=== PATIENT | female | born 1950 | race Caucasian/White ===

== ENCOUNTER 2017-07-29 11:55 | Inpatient (IN) | payer MEDICARE ==
[~2017-07-29] VITALS: Ht 149.9 cm; Wt 58.5 kg
[2017-07-29 12:00] VITALS: BP 142/59
[2017-07-29] MEDS ORDERED: ALBUTEROL SULFATE HFA 90 MCG/PUFF 8 GM INHALER IH PRN (14:15)
[2017-07-29] MEDS ORDERED: TEMAZEPAM 7.5 MG CAPSULE PO PRN (14:30)
[2017-07-29] MEDS ORDERED: DEXTROSE 50%-WATER 25 GM/50 ML SYRINGE IVP PRN (14:30)
[2017-07-29 15:30] VITALS: BP 149/59
[2017-07-29] MEDS: TraMADol HCL 50 MG TABLET PO PRN ×2 (16:40→22:30)
[2017-07-29] MEDS ORDERED: SEVELAMER CARBONATE 800 MG TABLET PO SCH (17:00)
[2017-07-29] MEDS: APIXABAN 2.5 MG TABLET PO SCH (20:06)
[2017-07-29] MEDS ORDERED: HEPARIN SODIUM,PORCINE 5,000 UNITS/ML VIAL SQ SCH (21:00)
[2017-07-29 21:23] LABS: GLUCOSE,POINT OF CARE 123 MG/DL (70-110)
[2017-07-29 21:23] LABS: GLUCOSE,POINT OF CARE 151 MG/DL (70-110)
[2017-07-29] MEDS: INSULIN ASPART 100 UNITS/ML SQ PRN (21:30)
[2017-07-30 04:20] VITALS: BP 123/56
[2017-07-30] MEDS: TraMADol HCL 50 MG TABLET PO PRN ×2 (04:21→18:59)
[2017-07-30 06:18] LABS: GLUCOSE,POINT OF CARE 104 MG/DL (70-110)
[2017-07-30 06:54] LABS: BASOPHILS % (AUTO) 0.3 % (0.0-2.0); EOSINOPHILS % (AUTO) 5.9 % (1.0-6.0); HEMATOCRIT 33.3 % (36-46); HEMOGLOBIN 10.7 g/dL (12.0-16.0); LYMPHOCYTES # (AUTO) 1.3 K/uL (1.0-4.8); LYMPHOCYTES % (AUTO) 21.9 % (22.0-44.0); MEAN CORPUSCULAR HEMOGLOBIN 30.6 pg (26.0-34.0); MEAN CORPUSCULAR VOLUME 95 fL (80-100); MONOCYTES # (AUTO) 0.9 K/uL (0.1-1.0); NEUTROPHILS # (AUTO) 3.5 K/uL (1.8-7.7); NEUTROPHILS % (AUTO) 56.9 % (40.0-70.0); PLATELET COUNT (AUTO) 239 K/uL (150-450); RED BLOOD CELL COUNT(AUTO) 3.49 MIL/uL (4.00-5.20); WHITE BLOOD COUNT (AUTO) 6.1 K/uL (4.5-11.0)
[2017-07-30 07:09] LABS: ALBUMIN 2.2 g/dL (3.4-5.0); BILIRUBIN,TOTAL 0.4 mg/dL (0.1-1.0); CREATININE 4.15 mg/dL (0.60-1.30); POTASSIUM 3.7 mmol/L (3.5-5.1); TOTAL PROTEIN, SERUM 6.7 g/dL (6.4-8.2)
[2017-07-30 07:57] VITALS: BP 153/67
[2017-07-30] MEDS: FLUTICASONE PROPIONATE 50 MCG/SPRAY 16 GM NASAL SPRAY NASAL SCH (08:33)
[2017-07-30] MEDS: FAMOTIDINE 20 MG TABLET PO SCH (08:34)
[2017-07-30] MEDS: VITAMIN B COMP/VIT C/FOLIC ACID CAPSULE PO SCH (08:34)
[2017-07-30] MEDS: APIXABAN 2.5 MG TABLET PO SCH ×2 (08:34→20:33)
[2017-07-30] MEDS: ATORVASTATIN CALCIUM 20 MG TABLET PO SCH (08:34)
[2017-07-30] MEDS: LEVOFLOXACIN 500 MG TABLET PO SCH (08:34)
[2017-07-30] MEDS: SEVELAMER CARBONATE 800 MG TABLET PO SCH ×3 (08:34→18:57)
[2017-07-30] MEDS: GABAPENTIN 300 MG CAPSULE PO SCH (08:34)
[2017-07-30] MEDS: ACETAMINOPHEN 325 MG TABLET PO PRN (10:11)
[2017-07-30] MEDS ORDERED: ACETAMINOPHEN 325 MG TABLET PO ONE (12:00)
[2017-07-30 12:15] LABS: RBC MORPHOLOGY COMMENT ABNORMAL RBC MORPH
[2017-07-30] MEDS ORDERED: SODIUM CHLORIDE 0.9% 2,000 ML IV ONE (13:53)
[2017-07-30 18:55] VITALS: BP 108/46
[2017-07-30 19:34] LABS: GLUCOSE,POINT OF CARE 115 MG/DL (70-110)
[2017-07-30] MEDS: TEMAZEPAM 15 MG CAPSULE PO PRN (20:34)
[2017-07-30] MEDS: INSULIN ASPART 100 UNITS/ML SQ PRN (21:45)
[2017-07-31 01:05] VITALS: BP 146/62
[2017-07-31] MEDS: TraMADol HCL 50 MG TABLET PO PRN ×4 (01:05→22:59)
[2017-07-31 05:50] LABS: GLUCOSE,POINT OF CARE 135 MG/DL (70-110)
[2017-07-31 07:18] VITALS: BP 126/55
[2017-07-31] MEDS: SEVELAMER CARBONATE 800 MG TABLET PO SCH ×3 (08:28→17:50)
[2017-07-31] MEDS: FLUTICASONE PROPIONATE 50 MCG/SPRAY 16 GM NASAL SPRAY NASAL SCH (08:28)
[2017-07-31] MEDS: APIXABAN 2.5 MG TABLET PO SCH ×2 (08:29→20:29)
[2017-07-31] MEDS: GABAPENTIN 300 MG CAPSULE PO SCH (08:29)
[2017-07-31] MEDS: FAMOTIDINE 20 MG TABLET PO SCH (08:29)
[2017-07-31] MEDS: EPOETIN ALFA 10,000 UNITS/ML VIAL SQ SCH (08:29)
[2017-07-31] MEDS: ATORVASTATIN CALCIUM 20 MG TABLET PO SCH (08:29)
[2017-07-31] MEDS: VITAMIN B COMP/VIT C/FOLIC ACID CAPSULE PO SCH (08:29)
[2017-07-31 12:57] LABS: GLUCOSE,POINT OF CARE 177 MG/DL (70-110)
[2017-07-31] MEDS: INSULIN ASPART 100 UNITS/ML SQ PRN ×2 (13:00→18:44)
[2017-07-31 15:56] VITALS: BP 109/60
[2017-07-31 17:12] LABS: GLUCOSE,POINT OF CARE 122 MG/DL (70-110)
[2017-07-31 17:12] LABS: GLUCOSE,POINT OF CARE 173 MG/DL (70-110)
[2017-07-31 17:33] LABS: GLUCOSE COMMENT 1 Received Meds; GLUCOSE,POINT OF CARE 158 MG/DL (70-110)
[2017-07-31 20:28] LABS: GLUCOSE,POINT OF CARE 120 MG/DL (70-110)
[2017-07-31] MEDS: DOCUSATE SODIUM 100 MG CAPSULE PO SCH (20:29)
[2017-07-31] MEDS ORDERED: SENNA 187 MG TABLET PO SCH (21:00)
[2017-07-31] MEDS: TEMAZEPAM 15 MG CAPSULE PO PRN (22:59)
[2017-07-31 23:58] VITALS: BP 116/50
[2017-08-01] MEDS: LACTULOSE 20 GM/30 ML SOLUTION UDCUP PO PRN (06:05)
[2017-08-01 06:13] LABS: GLUCOSE,POINT OF CARE 128 MG/DL (70-110)
[2017-08-01 07:34] LABS: PROTHROMBIN TIME 10.9 SEC (9.4-11.6)
[2017-08-01 07:40] VITALS: BP 126/53
[2017-08-01 07:42] LABS: CALCIUM, TOTAL 9.1 mg/dL (8.8-10.5); CREATININE 4.29 mg/dL (0.60-1.30); HEMOGLOBIN A1C 8.1 % (4.5-6.2); MAGNESIUM 2.2 mg/dL (1.80-2.40); PHOSPHORUS 2.2 mg/dL (2.5-4.9); POTASSIUM 4.3 mmol/L (3.5-5.1)
[2017-08-01] MEDS: FLUTICASONE PROPIONATE 50 MCG/SPRAY 16 GM NASAL SPRAY NASAL SCH (08:01)
[2017-08-01] MEDS: DOCUSATE SODIUM 100 MG CAPSULE PO SCH (08:01)
[2017-08-01] MEDS: VITAMIN B COMP/VIT C/FOLIC ACID CAPSULE PO SCH (08:01)
[2017-08-01] MEDS: TraMADol HCL 50 MG TABLET PO PRN ×2 (08:01→18:44)
[2017-08-01] MEDS: FAMOTIDINE 20 MG TABLET PO SCH (08:01)
[2017-08-01] MEDS: GABAPENTIN 300 MG CAPSULE PO SCH (08:01)
[2017-08-01] MEDS: ATORVASTATIN CALCIUM 20 MG TABLET PO SCH (08:01)
[2017-08-01] MEDS: SEVELAMER CARBONATE 800 MG TABLET PO SCH ×3 (08:01→18:45)
[2017-08-01] MEDS: LEVOFLOXACIN 500 MG TABLET PO SCH (08:01)
[2017-08-01] MEDS: APIXABAN 2.5 MG TABLET PO SCH ×2 (08:01→20:37)
[2017-08-01 08:22] LABS: BASOPHILS % (AUTO) 0.2 % (0.0-2.0); EOSINOPHILS % (AUTO) 4.3 % (1.0-6.0); HEMATOCRIT 34.3 % (36-46); HEMOGLOBIN 11.1 g/dL (12.0-16.0); LYMPHOCYTES # (AUTO) 1.7 K/uL (1.0-4.8); LYMPHOCYTES % (AUTO) 21.6 % (22.0-44.0); MEAN CORPUSCULAR HEMOGLOBIN 31.1 pg (26.0-34.0); MEAN CORPUSCULAR HGB CONC 32.3 G/dL (31.0-37.0); MEAN CORPUSCULAR VOLUME 96 fL (80-100); MONOCYTES # (AUTO) 1.2 K/uL (0.1-1.0); MONOCYTES % (AUTO) 15.5 % (2.0-9.0); NEUTROPHILS # (AUTO) 4.5 K/uL (1.8-7.7); NEUTROPHILS % (AUTO) 58.4 % (40.0-70.0); PLATELET COUNT (AUTO) 215 K/uL (150-450); RED BLOOD CELL COUNT(AUTO) 3.56 MIL/uL (4.00-5.20); RED CELL DISTRIBUTION WIDTH 20.1 % (11.5-14.5); WHITE BLOOD COUNT (AUTO) 7.8 K/uL (4.5-11.0)
[2017-08-01] MEDS ORDERED: SODIUM CL IRRIG SOLN BOTTLE 250 ML IRRIG ONE (10:55)
[2017-08-01 11:04] LABS: APPEARANCE,URINE TURBID (CLEAR); GLUCOSE, URINE (UA) NEGATIVE (NEGATIVE); KETONES,URINE TRACE mg/dL (NEGATIVE); LEUKOCYTE ESTERASE ,URINE MODERATE (NEGATIVE); OCCULT BLOOD,URINE LARGE (NEGATIVE); PROTEIN,URINE SEE CONFIRM (NEGATIVE)
[2017-08-01 11:49] LABS: SULFOSALICYLIC ACID,URINE 3+ (Negative); WBC,URINE Full Field /HPF (0-5)
[2017-08-01 11:57] LABS: RBC,URINE 26-50 /HPF (0-2)
[2017-08-01 11:58] LABS: SQUAMOUS EPITHELIAL CELL,UR Moderate /LPF (None Seen)
[2017-08-01] MEDS ORDERED: DiphenhydrAMINE HCL 25 MG CAPSULE PO PRN (13:45)
[2017-08-01] MEDS ORDERED: SODIUM CHLORIDE 0.9% 2,000 ML IV ONE (14:11)
[2017-08-01 18:48] VITALS: BP 116/51
[2017-08-01 19:17] LABS: GLUCOSE,POINT OF CARE 123 MG/DL (70-110)
[2017-08-01] MEDS ORDERED: DOCU100C19 PO (20:10)
[2017-08-01] MEDS ORDERED: PERCT10 PO (20:10)
[2017-08-01] MEDS ORDERED: LORA1TAB3 PO (20:10)
[2017-08-01] MEDS ORDERED: ASPI81 PO (20:10)
[2017-08-01] MEDS ORDERED: FOLI1TAB85 PO (20:10)
[2017-08-01] MEDS ORDERED: FAMO20 PO (20:10)
[2017-08-01] MEDS ORDERED: PRED5 PO (20:10)
[2017-08-01] MEDS ORDERED: SEVEC800 PO (20:10)
[2017-08-01] MEDS ORDERED: SIRO1 PO (20:10)
[2017-08-01] MEDS ORDERED: METO50 PO (20:10)
[2017-08-01] MEDS ORDERED: LISI-661 PO (20:10)
[2017-08-01] MEDS: DOCUSATE SODIUM 250 MG CAPSULE PO SCH (20:37)
[2017-08-01] MEDS: SENNA 187 MG TABLET PO SCH (20:38)
[2017-08-01] MEDS: INSULIN ASPART 100 UNITS/ML SQ PRN (20:48)
[2017-08-01] MEDS ORDERED: -LIDODERM PATCH NOTE- MISC SCH ×2 (21:00)
[2017-08-01 21:02] LABS: GLUCOSE,POINT OF CARE 198 MG/DL (70-110)
[2017-08-01] MEDS: HYDROCODONE/ACETAMINOPHEN 10-325 MG TABLET PO PRN (21:55)
[2017-08-01 23:29] VITALS: BP 119/56
[2017-08-02] MEDS: TraMADol HCL 50 MG TABLET PO PRN (02:03)
[2017-08-02 05:52] LABS: GLUCOSE,POINT OF CARE 172 MG/DL (70-110)
[2017-08-02] MEDS ORDERED: DOCUSATE SODIUM 283 MG/5 ML MINI-ENEMA PR SCH (06:00)
[2017-08-02] MEDS: LACTULOSE 20 GM/30 ML SOLUTION UDCUP PO PRN (06:51)
[2017-08-02 07:10] VITALS: BP 114/49
[2017-08-02] MEDS ORDERED: LIDOCAINE HCL 5% TRANSDERMAL PATCH TD SCH (09:00)
[2017-08-02] MEDS: SEVELAMER CARBONATE 800 MG TABLET PO SCH (09:31)
[2017-08-02] MEDS: FLUTICASONE PROPIONATE 50 MCG/SPRAY 16 GM NASAL SPRAY NASAL SCH (09:32)
[2017-08-02] MEDS: FAMOTIDINE 20 MG TABLET PO SCH (09:32)
[2017-08-02] MEDS: ATORVASTATIN CALCIUM 20 MG TABLET PO SCH (09:32)
[2017-08-02] MEDS: INSULIN ASPART 100 UNITS/ML SQ PRN ×3 (09:32→21:48)
[2017-08-02] MEDS: DOCUSATE SODIUM 250 MG CAPSULE PO SCH ×2 (09:32→21:50)
[2017-08-02] MEDS: GABAPENTIN 300 MG CAPSULE PO SCH (09:32)
[2017-08-02] MEDS: VITAMIN B COMP/VIT C/FOLIC ACID CAPSULE PO SCH (09:32)
[2017-08-02] MEDS: APIXABAN 2.5 MG TABLET PO SCH ×2 (09:33→21:50)
[2017-08-02 12:18] LABS: GLUCOSE,POINT OF CARE 182 MG/DL (70-110)
[2017-08-02 15:17] VITALS: BP 134/61
[2017-08-02 17:23] LABS: GLUCOSE,POINT OF CARE 228 MG/DL (70-110)
[2017-08-02 18:14] VITALS: BP 125/58
[2017-08-02] MEDS: ACETAMINOPHEN 325 MG TABLET PO PRN (18:41)
[2017-08-02 19:49] LABS: BASOPHILS % (AUTO) 0.4 % (0.0-2.0); EOSINOPHILS % (AUTO) 2.6 % (1.0-6.0); HEMATOCRIT 36.5 % (36-46); HEMOGLOBIN 11.8 g/dL (12.0-16.0); LYMPHOCYTES # (AUTO) 1.7 K/uL (1.0-4.8); LYMPHOCYTES % (AUTO) 15.6 % (22.0-44.0); MEAN CORPUSCULAR HEMOGLOBIN 30.7 pg (26.0-34.0); MEAN CORPUSCULAR HGB CONC 32.2 G/dL (31.0-37.0); MEAN CORPUSCULAR VOLUME 95 fL (80-100); MONOCYTES # (AUTO) 0.9 K/uL (0.1-1.0); MONOCYTES % (AUTO) 8.3 % (2.0-9.0); NEUTROPHILS # (AUTO) 7.9 K/uL (1.8-7.7); NEUTROPHILS % (AUTO) 73.1 % (40.0-70.0); PLATELET COUNT (AUTO) 223 K/uL (150-450); RED BLOOD CELL COUNT(AUTO) 3.83 MIL/uL (4.00-5.20); RED CELL DISTRIBUTION WIDTH 21.5 % (11.5-14.5); WHITE BLOOD COUNT (AUTO) 10.9 K/uL (4.5-11.0)
[2017-08-02 20:06] LABS: CALCIUM, TOTAL 9.2 mg/dL (8.8-10.5); CREATININE 4.31 mg/dL (0.60-1.30); POTASSIUM 4.4 mmol/L (3.5-5.1)
[2017-08-02 20:12] LABS: ALBUMIN 2.6 g/dL (3.4-5.0); BILIRUBIN,TOTAL 0.5 mg/dL (0.1-1.0); RBC MORPHOLOGY COMMENT ABNORMAL RBC MORPH; TOTAL PROTEIN, SERUM 7.9 g/dL (6.4-8.2)
[2017-08-02] MEDS: HYDROCODONE/ACETAMINOPHEN 10-325 MG TABLET PO PRN (20:16)
[2017-08-02] MEDS ORDERED: CefoTEtan DISOD 1 GM/DEXTROSE 50 ML IV SCH (21:00)
[2017-08-02] MEDS ORDERED: VANCOMYCIN HCL 1 GM/D5% WATER 200 ML IV PRN (21:00)
[2017-08-02] MEDS ORDERED: CefoTEtan DISODIUM 0.5 GM in DEXTROSE 5%-WATER 50 ML IV PRN (21:15)
[2017-08-02] MEDS ORDERED: VANCOMYCIN HCL 1.25 GM in DEXTROSE 5%-WATER 250 ML IV ONE (21:30)
[2017-08-02] MEDS: SENNA 187 MG TABLET PO SCH (21:50)
[2017-08-02 21:57] LABS: GLUCOSE,POINT OF CARE 263 MG/DL (70-110)
[2017-08-02] MEDS ORDERED: CefoTEtan DISODIUM 0.5 GM in DEXTROSE 5%-WATER 50 ML IV SCH (22:00)
[2017-08-02 23:38] VITALS: BP 116/43
[2017-08-03] MEDS ORDERED: SODIUM CHLORIDE 0.9% 250 ML IV ONE (00:18)
[2017-08-03] MEDS: 0.9% SODIUM CHLORIDE 10 ML SYRINGE IVP SCH ×4 (00:37→23:51)
[2017-08-03 05:15] VITALS: BP 114/48
[2017-08-03 05:48] LABS: GLUCOSE,POINT OF CARE 209 MG/DL (70-110)
[2017-08-03 07:20] VITALS: BP 110/52
[2017-08-03] MEDS: FLUTICASONE PROPIONATE 50 MCG/SPRAY 16 GM NASAL SPRAY NASAL SCH (08:21)
[2017-08-03] MEDS: FAMOTIDINE 20 MG TABLET PO SCH (08:22)
[2017-08-03] MEDS: GABAPENTIN 300 MG CAPSULE PO SCH (08:22)
[2017-08-03] MEDS: ATORVASTATIN CALCIUM 20 MG TABLET PO SCH (08:22)
[2017-08-03] MEDS: APIXABAN 2.5 MG TABLET PO SCH ×2 (08:22→21:58)
[2017-08-03] MEDS: VITAMIN B COMP/VIT C/FOLIC ACID CAPSULE PO SCH (08:22)
[2017-08-03] MEDS: EPOETIN ALFA 10,000 UNITS/ML VIAL SQ SCH (08:22)
[2017-08-03] MEDS: DOCUSATE SODIUM 250 MG CAPSULE PO SCH ×2 (08:22→21:58)
[2017-08-03] MEDS: INSULIN ASPART 100 UNITS/ML SQ PRN ×4 (08:33→22:17)
[2017-08-03] MEDS ORDERED: -POST HEMODIALYSIS NOTE- MISC SCH (09:00)
[2017-08-03 15:23] VITALS: BP 108/43
[2017-08-03 17:12] LABS: GLUCOSE,POINT OF CARE 231 MG/DL (70-110)
[2017-08-03] MEDS ORDERED: SULFAMETHOX/TRIMETH DS 800-160 MG/TABLET PO ONE (19:45)
[2017-08-03] MEDS: TraMADol HCL 50 MG TABLET PO PRN (19:59)
[2017-08-03] MEDS: SENNA 187 MG TABLET PO SCH (21:58)
[2017-08-03 23:27] LABS: GLUCOSE COMMENT 1 Juice/Food/D50 Given; GLUCOSE,POINT OF CARE 195 MG/DL (70-110)
[2017-08-04] VITALS: BP 112/53
[2017-08-04] MEDS: 0.9% SODIUM CHLORIDE 10 ML SYRINGE IVP SCH
[2017-08-04] MEDS: TraMADol HCL 50 MG TABLET PO PRN ×3 (02:38→20:22)
[2017-08-04 06:07] LABS: GLUCOSE,POINT OF CARE 210 MG/DL (70-110)
[2017-08-04] MEDS: VITAMIN B COMP/VIT C/FOLIC ACID CAPSULE PO SCH (08:33)
[2017-08-04] MEDS: APIXABAN 2.5 MG TABLET PO SCH ×2 (08:33→20:21)
[2017-08-04] MEDS: DOCUSATE SODIUM 250 MG CAPSULE PO SCH ×2 (08:33→20:21)
[2017-08-04] MEDS: GABAPENTIN 300 MG CAPSULE PO SCH (08:33)
[2017-08-04] MEDS: ATORVASTATIN CALCIUM 20 MG TABLET PO SCH (08:34)
[2017-08-04] MEDS: SULFAMETHOX/TRIMETH DS 800-160 MG/TABLET PO SCH (08:34)
[2017-08-04] MEDS: FLUTICASONE PROPIONATE 50 MCG/SPRAY 16 GM NASAL SPRAY NASAL SCH (08:34)
[2017-08-04] MEDS: FAMOTIDINE 20 MG TABLET PO SCH (08:35)
[2017-08-04 08:38] VITALS: BP 100/44
[2017-08-04] MEDS: HYDROCODONE/ACETAMINOPHEN 10-325 MG TABLET PO PRN (09:37)
[2017-08-04] MEDS: INSULIN ASPART 100 UNITS/ML SQ PRN ×3 (10:14→21:16)
[2017-08-04 11:23] VITALS: BP 120/49
[2017-08-04] MEDS ORDERED: SODIUM CHLORIDE 0.9% 1,000 ML IV ONE ×2 (13:18)
[2017-08-04 13:32] LABS: GLUCOSE,POINT OF CARE 185 MG/DL (70-110)
[2017-08-04 15:45] VITALS: BP 120/59
[2017-08-04] MEDS ORDERED: MANNITOL 25%-12.5 GM/50 ML VIAL IVP PRN (15:45)
[2017-08-04 17:58] LABS: GLUCOSE,POINT OF CARE 186 MG/DL (70-110)
[2017-08-04 18:17] LABS: GLUCOSE,POINT OF CARE 93 MG/DL (70-110)
[2017-08-04] MEDS: SENNA 187 MG TABLET PO SCH (20:44)
[2017-08-04 22:27] LABS: GLUCOSE,POINT OF CARE 256 MG/DL (70-110)
[2017-08-04 23:24] VITALS: BP 131/54
[2017-08-04] MEDS: ONDANSETRON HCL 4 MG TABLET PO PRN (23:26)
[2017-08-05 06:13] LABS: GLUCOSE,POINT OF CARE 181 MG/DL (70-110)
[2017-08-05 07:22] VITALS: BP 109/56
[2017-08-05] MEDS: ATORVASTATIN CALCIUM 20 MG TABLET PO SCH (08:04)
[2017-08-05] MEDS: APIXABAN 2.5 MG TABLET PO SCH ×2 (08:04→21:03)
[2017-08-05] MEDS: DOCUSATE SODIUM 250 MG CAPSULE PO SCH ×2 (08:04→21:03)
[2017-08-05] MEDS: VITAMIN B COMP/VIT C/FOLIC ACID CAPSULE PO SCH (08:04)
[2017-08-05] MEDS: EPOETIN ALFA 10,000 UNITS/ML VIAL SQ SCH (08:05)
[2017-08-05] MEDS: FAMOTIDINE 20 MG TABLET PO SCH (08:05)
[2017-08-05] MEDS: GABAPENTIN 300 MG CAPSULE PO SCH (08:05)
[2017-08-05] MEDS: FLUTICASONE PROPIONATE 50 MCG/SPRAY 16 GM NASAL SPRAY NASAL SCH (08:05)
[2017-08-05] MEDS: SULFAMETHOX/TRIMETH DS 800-160 MG/TABLET PO SCH (08:05)
[2017-08-05] MEDS: INSULIN ASPART 100 UNITS/ML SQ PRN ×4 (08:08→21:10)
[2017-08-05 08:19] VITALS: BP 109/56
[2017-08-05] MEDS: TraMADol HCL 50 MG TABLET PO PRN ×2 (08:54→18:29)
[2017-08-05 13:28] LABS: GLUCOSE COMMENT 1 Received Meds; GLUCOSE,POINT OF CARE 169 MG/DL (70-110)
[2017-08-05 15:37] VITALS: BP 109/52
[2017-08-05] MEDS ORDERED: HUM10VIA SQ ×2 (16:39)
[2017-08-05 17:52] LABS: GLUCOSE,POINT OF CARE 200 MG/DL (70-110)
[2017-08-05] MEDS: SENNA 187 MG TABLET PO SCH (21:03)
[2017-08-05 23:42] LABS: GLUCOSE,POINT OF CARE 185 MG/DL (70-110)
[2017-08-06 04:00] VITALS: BP 126/52
[2017-08-06 06:28] LABS: GLUCOSE,POINT OF CARE 155 MG/DL (70-110)
[2017-08-06 07:20] VITALS: BP 129/48
[2017-08-06] MEDS: DOCUSATE SODIUM 250 MG CAPSULE PO SCH ×2 (09:18→20:32)
[2017-08-06] MEDS: ATORVASTATIN CALCIUM 20 MG TABLET PO SCH (09:18)
[2017-08-06] MEDS: VITAMIN B COMP/VIT C/FOLIC ACID CAPSULE PO SCH (09:18)
[2017-08-06] MEDS: SULFAMETHOX/TRIMETH DS 800-160 MG/TABLET PO SCH (09:19)
[2017-08-06] MEDS: GABAPENTIN 300 MG CAPSULE PO SCH (09:19)
[2017-08-06] MEDS: FAMOTIDINE 20 MG TABLET PO SCH (09:19)
[2017-08-06] MEDS: APIXABAN 2.5 MG TABLET PO SCH ×2 (09:19→20:32)
[2017-08-06] MEDS: FLUTICASONE PROPIONATE 50 MCG/SPRAY 16 GM NASAL SPRAY NASAL SCH (09:19)
[2017-08-06] MEDS: [UNRECOGNIZED DRUG - REMARK] MISC SCH (10:30)
[2017-08-06] MEDS ORDERED: SODIUM CHLORIDE 0.9% 1,000 ML IV ONE ×2 (12:00)
[2017-08-06 12:27] LABS: GLUCOSE,POINT OF CARE 210 MG/DL (70-110)
[2017-08-06] MEDS: INSULIN ASPART 100 UNITS/ML SQ PRN ×2 (12:49→21:14)
[2017-08-06] MEDS ORDERED: VANCOMYCIN HCL 1 GM/D5% WATER 200 ML IV PRN ×2 (15:00)
[2017-08-06] MEDS ORDERED: DiphenhydrAMINE HCL 50 MG/ML VIAL IVP PRN (15:15)
[2017-08-06] MEDS ORDERED: MANNITOL 25%-12.5 GM/50 ML VIAL IVP PRN (15:15)
[2017-08-06] MEDS ORDERED: ALBUMIN HUMAN 25%-12.5GM/50ML IV BOTTLE IV PRN (15:15)
[2017-08-06] MEDS ORDERED: LIDOCAINE HCL/PF 1% 2 ML VIAL ID PRN (15:15)
[2017-08-06] MEDS ORDERED: SODIUM CHLORIDE 0.9% 500 ML IV ONE (15:21)
[2017-08-06] MEDS: VANCOMYCIN HCL 750 MG in DEXTROSE 5%-WATER 150 ML IV PRN (15:52)
[2017-08-06 18:03] VITALS: BP 103/47
[2017-08-06] MEDS: ONDANSETRON HCL 4 MG TABLET PO PRN (18:11)
[2017-08-06] MEDS: SENNA 187 MG TABLET PO SCH (20:32)
[2017-08-06] MEDS: ACETAMINOPHEN 325 MG TABLET PO PRN (21:28)
[2017-08-06 22:32] LABS: GLUCOSE,POINT OF CARE 138 MG/DL (70-110)
[2017-08-06 22:32] LABS: GLUCOSE COMMENT 1 Received Meds; GLUCOSE,POINT OF CARE 262 MG/DL (70-110)
[2017-08-07 01:00] VITALS: BP 103/46
[2017-08-07 06:28] LABS: GLUCOSE,POINT OF CARE 123 MG/DL (70-110)
[2017-08-07 08:30] VITALS: BP 103/54
[2017-08-07] MEDS: SULFAMETHOX/TRIMETH DS 800-160 MG/TABLET PO SCH (08:52)
[2017-08-07] MEDS: FLUTICASONE PROPIONATE 50 MCG/SPRAY 16 GM NASAL SPRAY NASAL SCH (08:52)
[2017-08-07] MEDS: DOCUSATE SODIUM 250 MG CAPSULE PO SCH ×2 (08:52→20:53)
[2017-08-07] MEDS: ATORVASTATIN CALCIUM 20 MG TABLET PO SCH (08:52)
[2017-08-07] MEDS: VITAMIN B COMP/VIT C/FOLIC ACID CAPSULE PO SCH (08:52)
[2017-08-07] MEDS: GABAPENTIN 300 MG CAPSULE PO SCH (08:52)
[2017-08-07] MEDS: FAMOTIDINE 20 MG TABLET PO SCH (08:52)
[2017-08-07] MEDS: APIXABAN 2.5 MG TABLET PO SCH ×2 (08:53→20:52)
[2017-08-07] MEDS: EPOETIN ALFA 10,000 UNITS/ML VIAL SQ SCH (08:53)
[2017-08-07] MEDS: TraMADol HCL 50 MG TABLET PO PRN ×2 (10:47→18:55)
[2017-08-07] MEDS: INSULIN ASPART 100 UNITS/ML SQ PRN ×3 (12:41→22:08)
[2017-08-07] MEDS: ACETAMINOPHEN 325 MG TABLET PO PRN (14:14)
[2017-08-07 15:25] VITALS: BP 117/50
[2017-08-07 17:37] LABS: GLUCOSE COMMENT 1 Received Meds; GLUCOSE,POINT OF CARE 247 MG/DL (70-110)
[2017-08-07] MEDS: SENNA 187 MG TABLET PO SCH (20:53)
[2017-08-07 21:47] LABS: GLUCOSE COMMENT 1 Repeated; GLUCOSE COMMENT 2 Received Meds; GLUCOSE,POINT OF CARE 195 MG/DL (70-110)
[2017-08-07 21:52] LABS: GLUCOSE,POINT OF CARE 216 MG/DL (70-110)
[2017-08-08 02:28] VITALS: BP 133/54
[2017-08-08 07:30] VITALS: BP 112/46
[2017-08-08] MEDS: VITAMIN B COMP/VIT C/FOLIC ACID CAPSULE PO SCH (08:43)
[2017-08-08] MEDS: APIXABAN 2.5 MG TABLET PO SCH ×2 (08:43→21:24)
[2017-08-08] MEDS: GABAPENTIN 300 MG CAPSULE PO SCH (08:43)
[2017-08-08] MEDS: ATORVASTATIN CALCIUM 20 MG TABLET PO SCH (08:43)
[2017-08-08] MEDS: SULFAMETHOX/TRIMETH DS 800-160 MG/TABLET PO SCH (08:43)
[2017-08-08] MEDS: FAMOTIDINE 20 MG TABLET PO SCH (08:43)
[2017-08-08] MEDS: DOCUSATE SODIUM 250 MG CAPSULE PO SCH ×2 (08:48→21:24)
[2017-08-08] MEDS: [UNRECOGNIZED DRUG - REMARK] MISC SCH (08:49)
[2017-08-08] MEDS: TraMADol HCL 50 MG TABLET PO PRN ×2 (09:34→22:09)
[2017-08-08] MEDS: FLUTICASONE PROPIONATE 50 MCG/SPRAY 16 GM NASAL SPRAY NASAL SCH (10:03)
[2017-08-08] MEDS: ACETAMINOPHEN 325 MG TABLET PO PRN (11:58)
[2017-08-08 12:48] LABS: GLUCOSE,POINT OF CARE 133 MG/DL (70-110)
[2017-08-08 12:48] LABS: GLUCOSE,POINT OF CARE 156 MG/DL (70-110)
[2017-08-08] MEDS: INSULIN ASPART 100 UNITS/ML SQ PRN ×2 (12:52→21:26)
[2017-08-08] MEDS ORDERED: SODIUM CHLORIDE 0.9% 1,000 ML IV ONE ×2 (13:13→13:14)
[2017-08-08] MEDS ORDERED: ALBUMIN HUMAN 25%-12.5GM/50ML IV BOTTLE IV PRN (13:15)
[2017-08-08] MEDS ORDERED: MANNITOL 25%-12.5 GM/50 ML VIAL IVP PRN (13:15)
[2017-08-08] MEDS ORDERED: VANCOMYCIN HCL 1.25 GM in DEXTROSE 5%-WATER 250 ML IV ONE (14:00)
[2017-08-08 15:49] VITALS: BP 119/60
[2017-08-08 20:20] VITALS: BP 129/52
[2017-08-08 21:08] LABS: GLUCOSE,POINT OF CARE 132 MG/DL (70-110)
[2017-08-08] MEDS: SENNA 187 MG TABLET PO SCH (21:24)
[2017-08-08 21:43] LABS: GLUCOSE COMMENT 1 Received Meds; GLUCOSE,POINT OF CARE 166 MG/DL (70-110)
[2017-08-09 05:00] VITALS: BP 127/55
[2017-08-09] MEDS: INSULIN ASPART 100 UNITS/ML SQ PRN ×3 (06:02→18:12)
[2017-08-09 06:03] LABS: GLUCOSE,POINT OF CARE 124 MG/DL (70-110)
[2017-08-09 08:00] VITALS: BP 148/52
[2017-08-09] MEDS: FLUTICASONE PROPIONATE 50 MCG/SPRAY 16 GM NASAL SPRAY NASAL SCH (08:27)
[2017-08-09] MEDS: DOCUSATE SODIUM 250 MG CAPSULE PO SCH ×2 (08:27→20:44)
[2017-08-09] MEDS: GABAPENTIN 300 MG CAPSULE PO SCH (08:27)
[2017-08-09] MEDS: FAMOTIDINE 20 MG TABLET PO SCH (08:28)
[2017-08-09] MEDS: APIXABAN 2.5 MG TABLET PO SCH ×2 (08:28→20:44)
[2017-08-09] MEDS: VITAMIN B COMP/VIT C/FOLIC ACID CAPSULE PO SCH (08:28)
[2017-08-09] MEDS: SULFAMETHOX/TRIMETH DS 800-160 MG/TABLET PO SCH (08:28)
[2017-08-09] MEDS: ATORVASTATIN CALCIUM 20 MG TABLET PO SCH (08:28)
[2017-08-09] MEDS: TraMADol HCL 50 MG TABLET PO PRN (08:30)
[2017-08-09 12:39] LABS: GLUCOSE COMMENT 1 Received Meds; GLUCOSE,POINT OF CARE 159 MG/DL (70-110)
[2017-08-09 15:23] VITALS: BP 132/63
[2017-08-09] MEDS: ACETAMINOPHEN 325 MG TABLET PO PRN (15:27)
[2017-08-09 17:24] LABS: GLUCOSE,POINT OF CARE 157 MG/DL (70-110)
[2017-08-09] MEDS: LACTULOSE 20 GM/30 ML SOLUTION UDCUP PO PRN (20:44)
[2017-08-09] MEDS: SENNA 187 MG TABLET PO SCH (20:44)
[2017-08-09 21:29] LABS: GLUCOSE,POINT OF CARE 135 MG/DL (70-110)
[2017-08-10 04:45] VITALS: BP 131/51
[2017-08-10 06:15] LABS: GLUCOSE,POINT OF CARE 142 MG/DL (70-110)
[2017-08-10 07:12] VITALS: BP 127/60
[2017-08-10] MEDS: ACETAMINOPHEN 325 MG TABLET PO PRN ×2 (08:11→12:02)
[2017-08-10] MEDS: EPOETIN ALFA 10,000 UNITS/ML VIAL SQ SCH (08:49)
[2017-08-10] MEDS: FLUTICASONE PROPIONATE 50 MCG/SPRAY 16 GM NASAL SPRAY NASAL SCH (08:49)
[2017-08-10] MEDS: ATORVASTATIN CALCIUM 20 MG TABLET PO SCH (08:49)
[2017-08-10] MEDS: FAMOTIDINE 20 MG TABLET PO SCH (08:50)
[2017-08-10] MEDS: SULFAMETHOX/TRIMETH DS 800-160 MG/TABLET PO SCH (08:50)
[2017-08-10] MEDS: VITAMIN B COMP/VIT C/FOLIC ACID CAPSULE PO SCH (08:50)
[2017-08-10] MEDS: APIXABAN 2.5 MG TABLET PO SCH ×2 (08:50→20:44)
[2017-08-10] MEDS: DOCUSATE SODIUM 250 MG CAPSULE PO SCH ×2 (08:50→20:28)
[2017-08-10] MEDS: GABAPENTIN 300 MG CAPSULE PO SCH (08:50)
[2017-08-10] MEDS: INSULIN ASPART 100 UNITS/ML SQ PRN ×2 (08:58→17:55)
[2017-08-10] MEDS: TraMADol HCL 50 MG TABLET PO PRN (09:01)
[2017-08-10 12:42] LABS: GLUCOSE,POINT OF CARE 127 MG/DL (70-110)
[2017-08-10 16:13] VITALS: BP 110/50
[2017-08-10 18:03] LABS: GLUCOSE,POINT OF CARE 170 MG/DL (70-110)
[2017-08-10] MEDS: SENNA 187 MG TABLET PO SCH (20:28)
[2017-08-11 02:17] VITALS: BP 125/63
[2017-08-11] MEDS: TraMADol HCL 50 MG TABLET PO PRN ×3 (02:17→13:52)
[2017-08-11 03:33] LABS: GLUCOSE,POINT OF CARE 101 MG/DL (70-110)
[2017-08-11 06:08] LABS: GLUCOSE,POINT OF CARE 108 MG/DL (70-110)
[2017-08-11 07:12] VITALS: BP 129/59
[2017-08-11 07:17] LABS: BASOPHILS % (AUTO) 0.7 % (0.0-2.0); EOSINOPHILS % (AUTO) 10.3 % (1.0-6.0); HEMOGLOBIN 11.6 g/dL (12.0-16.0); LYMPHOCYTES # (AUTO) 1.6 K/uL (1.0-4.8); LYMPHOCYTES % (AUTO) 24.6 % (22.0-44.0); MEAN CORPUSCULAR HEMOGLOBIN 30.5 pg (26.0-34.0); MEAN CORPUSCULAR HGB CONC 32.2 G/dL (31.0-37.0); MEAN CORPUSCULAR VOLUME 95 fL (80-100); MONOCYTES # (AUTO) 0.8 K/uL (0.1-1.0); MONOCYTES % (AUTO) 12.7 % (2.0-9.0); NEUTROPHILS # (AUTO) 3.5 K/uL (1.8-7.7); NEUTROPHILS % (AUTO) 51.7 % (40.0-70.0); PLATELET COUNT (AUTO) 158 K/uL (150-450); RED CELL DISTRIBUTION WIDTH 21.4 % (11.5-14.5); WHITE BLOOD COUNT (AUTO) 6.7 K/uL (4.5-11.0)
[2017-08-11 07:42] LABS: CALCIUM, TOTAL 8.8 mg/dL (8.8-10.5); CREATININE 5.56 mg/dL (0.60-1.30); MAGNESIUM 2.3 mg/dL (1.80-2.40); PHOSPHORUS 5.2 mg/dL (2.5-4.9); POTASSIUM 4.9 mmol/L (3.5-5.1)
[2017-08-11] MEDS: DOCUSATE SODIUM 250 MG CAPSULE PO SCH ×2 (08:47→20:15)
[2017-08-11] MEDS: FLUTICASONE PROPIONATE 50 MCG/SPRAY 16 GM NASAL SPRAY NASAL SCH (08:47)
[2017-08-11] MEDS: PredniSONE 5 MG TABLET PO SCH (08:47)
[2017-08-11] MEDS: SULFAMETHOX/TRIMETH DS 800-160 MG/TABLET PO SCH (08:47)
[2017-08-11] MEDS: ATORVASTATIN CALCIUM 20 MG TABLET PO SCH (08:48)
[2017-08-11] MEDS: FAMOTIDINE 20 MG TABLET PO SCH (08:48)
[2017-08-11] MEDS: GABAPENTIN 300 MG CAPSULE PO SCH (08:48)
[2017-08-11] MEDS: VITAMIN B COMP/VIT C/FOLIC ACID CAPSULE PO SCH (08:48)
[2017-08-11] MEDS: [UNRECOGNIZED DRUG - REMARK] MISC SCH (08:48)
[2017-08-11] MEDS: APIXABAN 2.5 MG TABLET PO SCH ×2 (08:48→20:14)
[2017-08-11 09:41] LABS: RBC MORPHOLOGY COMMENT ABNORMAL RBC MORPH
[2017-08-11] MEDS: INSULIN ASPART 100 UNITS/ML SQ PRN ×2 (12:42→21:27)
[2017-08-11] MEDS ORDERED: SODIUM CHLORIDE 0.9% 1,000 ML IV ONE ×2 (13:21)
[2017-08-11] MEDS ORDERED: ALBUMIN HUMAN 25%-12.5GM/50ML IV BOTTLE IV PRN (15:30)
[2017-08-11] MEDS ORDERED: MANNITOL 25%-12.5 GM/50 ML VIAL IVP PRN (15:30)
[2017-08-11 16:19] VITALS: BP_SYST 134; BP_SYST 138; BP_DIAS 68; BP_DIAS 90
[2017-08-11] MEDS: VANCOMYCIN HCL 750 MG in DEXTROSE 5%-WATER 150 ML IV PRN (17:01)
[2017-08-11 20:14] VITALS: BP 131/55
[2017-08-11] MEDS: SENNA 187 MG TABLET PO SCH ×3 (20:14→21:01)
[2017-08-11] MEDS: HYDROCODONE/ACETAMINOPHEN 10-325 MG TABLET PO PRN (20:14)
[2017-08-12 00:14] VITALS: BP 117/55
[2017-08-12] MEDS: TraMADol HCL 50 MG TABLET PO PRN ×3 (01:51→22:40)
[2017-08-12 06:13] LABS: GLUCOSE,POINT OF CARE 105 MG/DL (70-110)
[2017-08-12 07:23] VITALS: BP 124/54
[2017-08-12] MEDS: FAMOTIDINE 20 MG TABLET PO SCH (08:24)
[2017-08-12] MEDS: FLUTICASONE PROPIONATE 50 MCG/SPRAY 16 GM NASAL SPRAY NASAL SCH (08:24)
[2017-08-12] MEDS: DOCUSATE SODIUM 250 MG CAPSULE PO SCH ×2 (08:24→21:07)
[2017-08-12] MEDS: APIXABAN 2.5 MG TABLET PO SCH ×2 (08:24→21:07)
[2017-08-12] MEDS: PredniSONE 5 MG TABLET PO SCH (08:24)
[2017-08-12] MEDS: ATORVASTATIN CALCIUM 20 MG TABLET PO SCH (08:24)
[2017-08-12] MEDS: VITAMIN B COMP/VIT C/FOLIC ACID CAPSULE PO SCH (08:24)
[2017-08-12] MEDS: SULFAMETHOX/TRIMETH DS 800-160 MG/TABLET PO SCH (08:24)
[2017-08-12] MEDS: EPOETIN ALFA 10,000 UNITS/ML VIAL SQ SCH (08:24)
[2017-08-12] MEDS: GABAPENTIN 300 MG CAPSULE PO SCH (08:24)
[2017-08-12 12:33] LABS: GLUCOSE,POINT OF CARE 145 MG/DL (70-110)
[2017-08-12] MEDS: INSULIN ASPART 100 UNITS/ML SQ PRN ×3 (13:06→21:54)
[2017-08-12 16:53] VITALS: BP 111/58
[2017-08-12 17:42] LABS: GLUCOSE COMMENT 1 Received Meds; GLUCOSE,POINT OF CARE 157 MG/DL (70-110)
[2017-08-12 22:32] LABS: GLUCOSE COMMENT 1 Received Meds; GLUCOSE,POINT OF CARE 213 MG/DL (70-110)
[2017-08-12 23:35] VITALS: BP 135/74
[2017-08-13 05:13] LABS: GLUCOSE,POINT OF CARE 161 MG/DL (70-110)
[2017-08-13 05:13] LABS: GLUCOSE,POINT OF CARE 112 MG/DL (70-110)
[2017-08-13 05:13] LABS: GLUCOSE,POINT OF CARE 174 MG/DL (70-110)
[2017-08-13 06:18] LABS: GLUCOSE,POINT OF CARE 106 MG/DL (70-110)
[2017-08-13 07:38] VITALS: BP 126/48
[2017-08-13] MEDS: FLUTICASONE PROPIONATE 50 MCG/SPRAY 16 GM NASAL SPRAY NASAL SCH (07:49)
[2017-08-13] MEDS: VITAMIN B COMP/VIT C/FOLIC ACID CAPSULE PO SCH (07:49)
[2017-08-13] MEDS: ATORVASTATIN CALCIUM 20 MG TABLET PO SCH (07:49)
[2017-08-13] MEDS: DOCUSATE SODIUM 250 MG CAPSULE PO SCH ×3 (07:50→21:00)
[2017-08-13] MEDS: SULFAMETHOX/TRIMETH DS 800-160 MG/TABLET PO SCH (07:50)
[2017-08-13] MEDS: APIXABAN 2.5 MG TABLET PO SCH ×2 (07:50→21:00)
[2017-08-13] MEDS: GABAPENTIN 300 MG CAPSULE PO SCH (07:50)
[2017-08-13] MEDS: FAMOTIDINE 20 MG TABLET PO SCH (07:50)
[2017-08-13] MEDS: PredniSONE 5 MG TABLET PO SCH (07:50)
[2017-08-13] MEDS: TraMADol HCL 50 MG TABLET PO PRN ×2 (08:03→21:00)
[2017-08-13] MEDS: [UNRECOGNIZED DRUG - REMARK] MISC SCH (09:24)
[2017-08-13 12:43] LABS: GLUCOSE,POINT OF CARE 173 MG/DL (70-110)
[2017-08-13] MEDS: INSULIN ASPART 100 UNITS/ML SQ PRN ×3 (13:08→23:01)
[2017-08-13] MEDS ORDERED: VANCOMYCIN HCL 1 GM/D5% WATER 200 ML IV ONE (14:00)
[2017-08-13 15:00] VITALS: BP 138/73
[2017-08-13 17:23] LABS: GLUCOSE COMMENT 1 Juice/Food/D50 Given; GLUCOSE COMMENT 2 Received Meds; GLUCOSE,POINT OF CARE 170 MG/DL (70-110)
[2017-08-13 20:47] LABS: GLUCOSE,POINT OF CARE 164 MG/DL (70-110)
[2017-08-13] MEDS: SENNA 187 MG TABLET PO SCH (21:00)
[2017-08-13 23:17] VITALS: BP 120/65
[2017-08-13 23:27] LABS: GLUCOSE,POINT OF CARE 142 MG/DL (70-110)
[2017-08-14 06:40] LABS: GLUCOSE,POINT OF CARE 100 MG/DL (70-110)
[2017-08-14] MEDS: LACTULOSE 20 GM/30 ML SOLUTION UDCUP PO PRN (06:55)
[2017-08-14 07:08] VITALS: BP 127/52
[2017-08-14] MEDS: FLUTICASONE PROPIONATE 50 MCG/SPRAY 16 GM NASAL SPRAY NASAL SCH (08:16)
[2017-08-14] MEDS: EPOETIN ALFA 10,000 UNITS/ML VIAL SQ SCH (08:16)
[2017-08-14] MEDS: DOCUSATE SODIUM 250 MG CAPSULE PO SCH ×2 (08:17→20:52)
[2017-08-14] MEDS: SULFAMETHOX/TRIMETH DS 800-160 MG/TABLET PO SCH (08:17)
[2017-08-14] MEDS: FAMOTIDINE 20 MG TABLET PO SCH (08:17)
[2017-08-14] MEDS: ATORVASTATIN CALCIUM 20 MG TABLET PO SCH (08:17)
[2017-08-14] MEDS: VITAMIN B COMP/VIT C/FOLIC ACID CAPSULE PO SCH (08:17)
[2017-08-14] MEDS: GABAPENTIN 300 MG CAPSULE PO SCH (08:17)
[2017-08-14] MEDS: PredniSONE 5 MG TABLET PO SCH (08:17)
[2017-08-14] MEDS: APIXABAN 2.5 MG TABLET PO SCH ×2 (08:17→20:48)
[2017-08-14] MEDS: TraMADol HCL 50 MG TABLET PO PRN ×2 (08:18→19:15)
[2017-08-14] MEDS ORDERED: SitaGLIPtin PHOSPHATE 25 MG TABLET PO ONE (12:00)
[2017-08-14] MEDS: INSULIN ASPART 100 UNITS/ML SQ PRN ×3 (12:57→21:21)
[2017-08-14 15:41] VITALS: BP 134/66
[2017-08-14 17:12] LABS: GLUCOSE,POINT OF CARE 224 MG/DL (70-110)
[2017-08-14 17:13] LABS: GLUCOSE,POINT OF CARE 174 MG/DL (70-110)
[2017-08-14] MEDS: SENNA 187 MG TABLET PO SCH (20:53)
[2017-08-14 21:32] LABS: GLUCOSE,POINT OF CARE 150 MG/DL (70-110)
[2017-08-15 01:19] VITALS: BP 123/50
[2017-08-15 05:58] LABS: GLUCOSE,POINT OF CARE 123 MG/DL (70-110)
[2017-08-15 08:00] VITALS: BP 115/54
[2017-08-15] MEDS: DOCUSATE SODIUM 250 MG CAPSULE PO SCH ×2 (08:03→21:55)
[2017-08-15] MEDS: VITAMIN B COMP/VIT C/FOLIC ACID CAPSULE PO SCH (08:03)
[2017-08-15] MEDS: FAMOTIDINE 20 MG TABLET PO SCH (08:03)
[2017-08-15] MEDS: HYDROCODONE/ACETAMINOPHEN 10-325 MG TABLET PO PRN (08:03)
[2017-08-15] MEDS: SULFAMETHOX/TRIMETH DS 800-160 MG/TABLET PO SCH (08:03)
[2017-08-15] MEDS: APIXABAN 2.5 MG TABLET PO SCH ×2 (08:03→21:55)
[2017-08-15] MEDS: ATORVASTATIN CALCIUM 20 MG TABLET PO SCH (08:03)
[2017-08-15] MEDS: GABAPENTIN 300 MG CAPSULE PO SCH (08:03)
[2017-08-15] MEDS: FLUTICASONE PROPIONATE 50 MCG/SPRAY 16 GM NASAL SPRAY NASAL SCH (08:03)
[2017-08-15] MEDS: PredniSONE 5 MG TABLET PO SCH (08:03)
[2017-08-15] MEDS: SitaGLIPtin PHOSPHATE 25 MG TABLET PO SCH (08:04)
[2017-08-15 08:09] LABS: CALCIUM, TOTAL 9.1 mg/dL (8.8-10.5); CREATININE 5.16 mg/dL (0.60-1.30); MAGNESIUM 2.3 mg/dL (1.80-2.40); PHOSPHORUS 4.9 mg/dL (2.5-4.9); POTASSIUM 4.1 mmol/L (3.5-5.1)
[2017-08-15] MEDS: [UNRECOGNIZED DRUG - REMARK] MISC SCH (08:20)
[2017-08-15] MEDS ORDERED: VANCOMYCIN HCL 1.25 GM in DEXTROSE 5%-WATER 250 ML IV ONE (09:00)
[2017-08-15] MEDS: INSULIN ASPART 100 UNITS/ML SQ PRN ×2 (12:45→21:59)
[2017-08-15] MEDS ORDERED: SODIUM CHLORIDE 0.9% 1,000 ML IV ONE ×2 (14:12)
[2017-08-15 15:17] VITALS: BP 120/51
[2017-08-15 17:33] LABS: GLUCOSE COMMENT 1 Received Meds; GLUCOSE,POINT OF CARE 207 MG/DL (70-110)
[2017-08-15] MEDS ORDERED: ALBUMIN HUMAN 25%-12.5GM/50ML IV BOTTLE IV PRN (18:15)
[2017-08-15] MEDS ORDERED: MANNITOL 25%-12.5 GM/50 ML VIAL IVP PRN (18:15)
[2017-08-15] MEDS: TraMADol HCL 50 MG TABLET PO PRN (20:48)
[2017-08-15] MEDS: SENNA 187 MG TABLET PO SCH (21:55)
[2017-08-15 22:58] LABS: GLUCOSE COMMENT 1 Received Meds; GLUCOSE,POINT OF CARE 219 MG/DL (70-110)
[2017-08-15 23:15] VITALS: BP 101/52
[2017-08-16] MEDS: TraMADol HCL 50 MG TABLET PO PRN (05:39)
[2017-08-16 05:53] LABS: GLUCOSE,POINT OF CARE 178 MG/DL (70-110)
[2017-08-16 05:53] LABS: GLUCOSE,POINT OF CARE 241 MG/DL (70-110)
[2017-08-16 08:00] VITALS: BP 109/61
[2017-08-16] MEDS: GABAPENTIN 300 MG CAPSULE PO SCH (08:29)
[2017-08-16] MEDS: FLUTICASONE PROPIONATE 50 MCG/SPRAY 16 GM NASAL SPRAY NASAL SCH (08:29)
[2017-08-16] MEDS: DOCUSATE SODIUM 250 MG CAPSULE PO SCH ×2 (08:29→20:40)
[2017-08-16] MEDS: FAMOTIDINE 20 MG TABLET PO SCH (08:29)
[2017-08-16] MEDS: ATORVASTATIN CALCIUM 20 MG TABLET PO SCH (08:29)
[2017-08-16] MEDS: SULFAMETHOX/TRIMETH DS 800-160 MG/TABLET PO SCH (08:29)
[2017-08-16] MEDS: VITAMIN B COMP/VIT C/FOLIC ACID CAPSULE PO SCH (08:29)
[2017-08-16] MEDS: SitaGLIPtin PHOSPHATE 25 MG TABLET PO SCH (08:29)
[2017-08-16] MEDS: APIXABAN 2.5 MG TABLET PO SCH ×2 (08:30→20:40)
[2017-08-16] MEDS: PredniSONE 5 MG TABLET PO SCH (08:30)
[2017-08-16] MEDS: INSULIN ASPART 100 UNITS/ML SQ PRN ×4 (10:05→21:40)
[2017-08-16 12:03] LABS: GLUCOSE,POINT OF CARE 183 MG/DL (70-110)
[2017-08-16 15:34] VITALS: BP 120/63
[2017-08-16] MEDS: SENNA 187 MG TABLET PO SCH (21:39)
[2017-08-16 21:43] LABS: GLUCOSE,POINT OF CARE 183 MG/DL (70-110)
[2017-08-16 23:13] LABS: GLUCOSE COMMENT 1 Received Meds; GLUCOSE,POINT OF CARE 239 MG/DL (70-110)
[2017-08-17 01:29] VITALS: BP 123/57
[2017-08-17 06:02] LABS: GLUCOSE,POINT OF CARE 140 MG/DL (70-110)
[2017-08-17 06:45] LABS: EOSINOPHILS % (AUTO) 6.5 % (1.0-6.0); HEMOGLOBIN 12.2 g/dL (12.0-16.0); LYMPHOCYTES # (AUTO) 1.6 K/uL (1.0-4.8); LYMPHOCYTES % (AUTO) 24.6 % (22.0-44.0); MEAN CORPUSCULAR HEMOGLOBIN 31.1 pg (26.0-34.0); MEAN CORPUSCULAR HGB CONC 32.1 G/dL (31.0-37.0); MEAN CORPUSCULAR VOLUME 97 fL (80-100); MONOCYTES # (AUTO) 0.9 K/uL (0.1-1.0); NEUTROPHILS # (AUTO) 3.7 K/uL (1.8-7.7); NEUTROPHILS % (AUTO) 55.9 % (40.0-70.0); PLATELET COUNT (AUTO) 163 K/uL (150-450); RED BLOOD CELL COUNT(AUTO) 3.92 MIL/uL (4.00-5.20); RED CELL DISTRIBUTION WIDTH 23.5 % (11.5-14.5); WHITE BLOOD COUNT (AUTO) 6.5 K/uL (4.5-11.0)
[2017-08-17 06:59] LABS: CALCIUM, TOTAL 9.1 mg/dL (8.8-10.5); CREATININE 4.6 mg/dL (0.60-1.30); PHOSPHORUS 4.7 mg/dL (2.5-4.9); POTASSIUM 4.1 mmol/L (3.5-5.1)
[2017-08-17 08:07] VITALS: BP 122/53
[2017-08-17] MEDS: FLUTICASONE PROPIONATE 50 MCG/SPRAY 16 GM NASAL SPRAY NASAL SCH (08:19)
[2017-08-17] MEDS: APIXABAN 2.5 MG TABLET PO SCH ×2 (08:19→20:06)
[2017-08-17] MEDS: DOCUSATE SODIUM 250 MG CAPSULE PO SCH ×2 (08:19→20:06)
[2017-08-17] MEDS: GABAPENTIN 300 MG CAPSULE PO SCH (08:20)
[2017-08-17] MEDS: ATORVASTATIN CALCIUM 20 MG TABLET PO SCH (08:20)
[2017-08-17] MEDS: FAMOTIDINE 20 MG TABLET PO SCH (08:20)
[2017-08-17] MEDS: TraMADol HCL 50 MG TABLET PO PRN (08:21)
[2017-08-17] MEDS: SitaGLIPtin PHOSPHATE 25 MG TABLET PO SCH (08:21)
[2017-08-17] MEDS: VITAMIN B COMP/VIT C/FOLIC ACID CAPSULE PO SCH (08:22)
[2017-08-17] MEDS: PredniSONE 5 MG TABLET PO SCH (08:22)
[2017-08-17] MEDS: SULFAMETHOX/TRIMETH DS 800-160 MG/TABLET PO SCH (08:22)
[2017-08-17] MEDS: EPOETIN ALFA 10,000 UNITS/ML VIAL SQ SCH (08:24)
[2017-08-17 08:41] LABS: RBC MORPHOLOGY COMMENT ABNORMAL RBC MORPH
[2017-08-17] MEDS: INSULIN ASPART 100 UNITS/ML SQ PRN ×3 (12:30→21:09)
[2017-08-17 13:12] LABS: GLUCOSE,POINT OF CARE 228 MG/DL (70-110)
[2017-08-17 15:10] VITALS: BP 136/60
[2017-08-17 17:13] LABS: GLUCOSE,POINT OF CARE 191 MG/DL (70-110)
[2017-08-17] MEDS: SENNA 187 MG TABLET PO SCH (20:08)
[2017-08-17 21:38] LABS: GLUCOSE,POINT OF CARE 219 MG/DL (70-110)
[2017-08-18 04:00] VITALS: BP 115/56
[2017-08-18 06:03] LABS: GLUCOSE,POINT OF CARE 145 MG/DL (70-110)
[2017-08-18 07:09] VITALS: BP 117/52
[2017-08-18] MEDS: FLUTICASONE PROPIONATE 50 MCG/SPRAY 16 GM NASAL SPRAY NASAL SCH (08:14)
[2017-08-18] MEDS: APIXABAN 2.5 MG TABLET PO SCH ×2 (08:14→21:01)
[2017-08-18] MEDS: VITAMIN B COMP/VIT C/FOLIC ACID CAPSULE PO SCH (08:14)
[2017-08-18] MEDS: GABAPENTIN 300 MG CAPSULE PO SCH (08:14)
[2017-08-18] MEDS: SitaGLIPtin PHOSPHATE 25 MG TABLET PO SCH (08:14)
[2017-08-18] MEDS: FAMOTIDINE 20 MG TABLET PO SCH (08:14)
[2017-08-18] MEDS: DOCUSATE SODIUM 250 MG CAPSULE PO SCH ×2 (08:15→21:01)
[2017-08-18] MEDS: ATORVASTATIN CALCIUM 20 MG TABLET PO SCH (08:15)
[2017-08-18] MEDS: PredniSONE 5 MG TABLET PO SCH (08:15)
[2017-08-18] MEDS: INSULIN ASPART 100 UNITS/ML SQ PRN ×3 (08:16→18:24)
[2017-08-18] MEDS: [UNRECOGNIZED DRUG - REMARK] MISC SCH (08:31)
[2017-08-18] MEDS: TraMADol HCL 50 MG TABLET PO PRN (09:38)
[2017-08-18 11:33] LABS: GLUCOSE,POINT OF CARE 172 MG/DL (70-110)
[2017-08-18] MEDS ORDERED: SODIUM CHLORIDE 0.9% 2,000 ML IV ONE (14:08)
[2017-08-18] MEDS ORDERED: MANNITOL 25%-12.5 GM/50 ML VIAL IVP PRN (14:15)
[2017-08-18 15:55] VITALS: BP 111/60
[2017-08-18] MEDS: HYDROCODONE/ACETAMINOPHEN 10-325 MG TABLET PO PRN (17:08)
[2017-08-18 17:28] LABS: GLUCOSE COMMENT 1 Received Meds; GLUCOSE,POINT OF CARE 153 MG/DL (70-110)
[2017-08-18] MEDS ORDERED: VANCOMYCIN HCL 500 MG in DEXTROSE 5%-WATER 100 ML IV ONE (18:00)
[2017-08-18] MEDS: SENNA 187 MG TABLET PO SCH (21:01)
[2017-08-18 23:03] LABS: GLUCOSE,POINT OF CARE 140 MG/DL (70-110)
[2017-08-18 23:59] VITALS: BP 120/56
[2017-08-19] MEDS: TraMADol HCL 50 MG TABLET PO PRN ×2 (05:03→13:12)
[2017-08-19 06:08] LABS: GLUCOSE,POINT OF CARE 119 MG/DL (70-110)
[2017-08-19 07:40] VITALS: BP 123/59
[2017-08-19] MEDS: GABAPENTIN 300 MG CAPSULE PO SCH (09:26)
[2017-08-19] MEDS: FLUTICASONE PROPIONATE 50 MCG/SPRAY 16 GM NASAL SPRAY NASAL SCH (09:26)
[2017-08-19] MEDS: FAMOTIDINE 20 MG TABLET PO SCH (09:26)
[2017-08-19] MEDS: DOCUSATE SODIUM 250 MG CAPSULE PO SCH ×2 (09:26→20:59)
[2017-08-19] MEDS: APIXABAN 2.5 MG TABLET PO SCH ×2 (09:26→21:00)
[2017-08-19] MEDS: PredniSONE 5 MG TABLET PO SCH (09:26)
[2017-08-19] MEDS: SitaGLIPtin PHOSPHATE 25 MG TABLET PO SCH (09:26)
[2017-08-19] MEDS: EPOETIN ALFA 10,000 UNITS/ML VIAL SQ SCH (09:26)
[2017-08-19] MEDS: ATORVASTATIN CALCIUM 20 MG TABLET PO SCH (09:27)
[2017-08-19] MEDS: VITAMIN B COMP/VIT C/FOLIC ACID CAPSULE PO SCH (09:27)
[2017-08-19 11:32] LABS: GLUCOSE,POINT OF CARE 213 MG/DL (70-110)
[2017-08-19] MEDS: INSULIN ASPART 100 UNITS/ML SQ PRN ×3 (13:06→21:28)
[2017-08-19 15:57] VITALS: BP 109/54
[2017-08-19 17:13] LABS: GLUCOSE COMMENT 1 Received Meds; GLUCOSE,POINT OF CARE 180 MG/DL (70-110)
[2017-08-19] MEDS: SENNA 187 MG TABLET PO SCH (21:00)
[2017-08-19 21:12] LABS: GLUCOSE,POINT OF CARE 156 MG/DL (70-110)
[2017-08-20 00:12] VITALS: BP 112/61
[2017-08-20 06:17] LABS: GLUCOSE,POINT OF CARE 123 MG/DL (70-110)
[2017-08-20 07:25] VITALS: BP 126/52
[2017-08-20] MEDS: SitaGLIPtin PHOSPHATE 25 MG TABLET PO SCH (07:54)
[2017-08-20] MEDS: DOCUSATE SODIUM 250 MG CAPSULE PO SCH ×2 (07:54→22:35)
[2017-08-20] MEDS: FLUTICASONE PROPIONATE 50 MCG/SPRAY 16 GM NASAL SPRAY NASAL SCH (07:54)
[2017-08-20] MEDS: FAMOTIDINE 20 MG TABLET PO SCH (07:54)
[2017-08-20] MEDS: ATORVASTATIN CALCIUM 20 MG TABLET PO SCH (07:54)
[2017-08-20] MEDS: PredniSONE 5 MG TABLET PO SCH (07:54)
[2017-08-20] MEDS: VITAMIN B COMP/VIT C/FOLIC ACID CAPSULE PO SCH (07:54)
[2017-08-20] MEDS: APIXABAN 2.5 MG TABLET PO SCH ×2 (07:54→22:35)
[2017-08-20] MEDS: GABAPENTIN 300 MG CAPSULE PO SCH (07:56)
[2017-08-20] MEDS: HYDROCODONE/ACETAMINOPHEN 10-325 MG TABLET PO PRN (07:56)
[2017-08-20] MEDS: TraMADol HCL 50 MG TABLET PO PRN ×2 (12:32→23:56)
[2017-08-20] MEDS: INSULIN ASPART 100 UNITS/ML SQ PRN ×3 (12:32→22:41)
[2017-08-20 17:36] VITALS: BP 127/61
[2017-08-20 17:37] LABS: GLUCOSE,POINT OF CARE 236 MG/DL (70-110)
[2017-08-20] MEDS ORDERED: SODIUM CHLORIDE 0.9% 2,000 ML IV ONE (18:21)
[2017-08-20] MEDS ORDERED: MANNITOL 25%-12.5 GM/50 ML VIAL IVP PRN (19:15)
[2017-08-20] MEDS: SENNA 187 MG TABLET PO SCH (22:35)
[2017-08-20 22:47] LABS: GLUCOSE COMMENT 1 Received Meds; GLUCOSE,POINT OF CARE 227 MG/DL (70-110)
[2017-08-20 22:47] LABS: GLUCOSE,POINT OF CARE 149 MG/DL (70-110)
[2017-08-20 23:56] VITALS: BP 117/53
[2017-08-21 06:22] LABS: GLUCOSE,POINT OF CARE 108 MG/DL (70-110)
[2017-08-21 07:10] VITALS: BP 102/47
[2017-08-21] MEDS: FLUTICASONE PROPIONATE 50 MCG/SPRAY 16 GM NASAL SPRAY NASAL SCH (08:32)
[2017-08-21] MEDS: EPOETIN ALFA 10,000 UNITS/ML VIAL SQ SCH (08:32)
[2017-08-21] MEDS: FAMOTIDINE 20 MG TABLET PO SCH (08:32)
[2017-08-21] MEDS: ATORVASTATIN CALCIUM 20 MG TABLET PO SCH (08:32)
[2017-08-21] MEDS: DOCUSATE SODIUM 250 MG CAPSULE PO SCH ×2 (08:32→20:33)
[2017-08-21] MEDS: PredniSONE 5 MG TABLET PO SCH (08:32)
[2017-08-21] MEDS: VITAMIN B COMP/VIT C/FOLIC ACID CAPSULE PO SCH (08:32)
[2017-08-21] MEDS: GABAPENTIN 300 MG CAPSULE PO SCH (08:32)
[2017-08-21] MEDS: SitaGLIPtin PHOSPHATE 25 MG TABLET PO SCH (08:32)
[2017-08-21] MEDS: APIXABAN 2.5 MG TABLET PO SCH ×2 (08:32→20:33)
[2017-08-21] MEDS: TraMADol HCL 50 MG TABLET PO PRN ×2 (09:22→14:11)
[2017-08-21] MEDS: INSULIN ASPART 100 UNITS/ML SQ PRN ×2 (12:48→17:55)
[2017-08-21 15:10] VITALS: BP_SYST 128; BP_SYST 144; BP_DIAS 66; BP_DIAS 72
[2017-08-21 19:22] LABS: GLUCOSE COMMENT 1 Received Meds; GLUCOSE,POINT OF CARE 200 MG/DL (70-110)
[2017-08-21] MEDS: SENNA 187 MG TABLET PO SCH (20:33)
[2017-08-21 22:37] LABS: GLUCOSE,POINT OF CARE 140 MG/DL (70-110)
[2017-08-22 01:24] VITALS: BP 126/56
[2017-08-22 04:27] LABS: GLUCOSE,POINT OF CARE 166 MG/DL (70-110)
[2017-08-22 05:53] LABS: GLUCOSE,POINT OF CARE 118 MG/DL (70-110)
[2017-08-22 07:12] VITALS: BP 121/56
[2017-08-22] MEDS: VITAMIN B COMP/VIT C/FOLIC ACID CAPSULE PO SCH (08:42)
[2017-08-22] MEDS: DOCUSATE SODIUM 250 MG CAPSULE PO SCH ×3 (08:42→20:53)
[2017-08-22] MEDS: SitaGLIPtin PHOSPHATE 25 MG TABLET PO SCH (08:42)
[2017-08-22] MEDS: PredniSONE 5 MG TABLET PO SCH (08:42)
[2017-08-22] MEDS: APIXABAN 2.5 MG TABLET PO SCH ×2 (08:42→20:53)
[2017-08-22] MEDS: FAMOTIDINE 20 MG TABLET PO SCH (08:42)
[2017-08-22] MEDS: GABAPENTIN 300 MG CAPSULE PO SCH (08:42)
[2017-08-22] MEDS: FLUTICASONE PROPIONATE 50 MCG/SPRAY 16 GM NASAL SPRAY NASAL SCH (08:42)
[2017-08-22] MEDS: ATORVASTATIN CALCIUM 20 MG TABLET PO SCH (08:42)
[2017-08-22] MEDS: TraMADol HCL 50 MG TABLET PO PRN ×2 (09:16→22:06)
[2017-08-22 12:12] LABS: GLUCOSE,POINT OF CARE 235 MG/DL (70-110)
[2017-08-22] MEDS: INSULIN ASPART 100 UNITS/ML SQ PRN ×2 (12:38→21:28)
[2017-08-22 15:04] VITALS: BP 114/48
[2017-08-22] MEDS ORDERED: SODIUM CHLORIDE 0.9% 2,000 ML IV ONE (16:32)
[2017-08-22 17:42] LABS: GLUCOSE COMMENT 1 Received Meds; GLUCOSE,POINT OF CARE 141 MG/DL (70-110)
[2017-08-22] MEDS: SENNA 187 MG TABLET PO SCH (20:53)
[2017-08-22 21:35] VITALS: BP 131/58
[2017-08-22 22:27] LABS: GLUCOSE COMMENT 1 Received Meds; GLUCOSE,POINT OF CARE 147 MG/DL (70-110)
[2017-08-22 23:50] VITALS: BP 110/47
[2017-08-23] MEDS: ACETAMINOPHEN 325 MG TABLET PO PRN ×2 (02:02→13:42)
[2017-08-23 06:27] LABS: GLUCOSE,POINT OF CARE 198 MG/DL (70-110)
[2017-08-23 08:30] VITALS: BP 133/49
[2017-08-23] MEDS: APIXABAN 2.5 MG TABLET PO SCH ×2 (08:51→20:47)
[2017-08-23] MEDS: FLUTICASONE PROPIONATE 50 MCG/SPRAY 16 GM NASAL SPRAY NASAL SCH (08:51)
[2017-08-23] MEDS: PredniSONE 5 MG TABLET PO SCH (08:52)
[2017-08-23] MEDS: FAMOTIDINE 20 MG TABLET PO SCH (08:52)
[2017-08-23] MEDS: SitaGLIPtin PHOSPHATE 25 MG TABLET PO SCH (08:52)
[2017-08-23] MEDS: VITAMIN B COMP/VIT C/FOLIC ACID CAPSULE PO SCH (08:52)
[2017-08-23] MEDS: GABAPENTIN 300 MG CAPSULE PO SCH (08:52)
[2017-08-23] MEDS: ATORVASTATIN CALCIUM 20 MG TABLET PO SCH (08:52)
[2017-08-23] MEDS: DOCUSATE SODIUM 250 MG CAPSULE PO SCH ×2 (08:52→20:47)
[2017-08-23] MEDS: INSULIN ASPART 100 UNITS/ML SQ PRN ×3 (08:56→21:54)
[2017-08-23 12:48] LABS: GLUCOSE,POINT OF CARE 135 MG/DL (70-110)
[2017-08-23 15:22] VITALS: BP 113/53
[2017-08-23 17:48] LABS: GLUCOSE COMMENT 1 Received Meds; GLUCOSE,POINT OF CARE 197 MG/DL (70-110)
[2017-08-23] MEDS: TraMADol HCL 50 MG TABLET PO PRN (19:55)
[2017-08-23] MEDS: SENNA 187 MG TABLET PO SCH (20:47)
[2017-08-23 21:43] LABS: GLUCOSE COMMENT 1 Received Meds; GLUCOSE,POINT OF CARE 249 MG/DL (70-110)
[2017-08-24 01:13] VITALS: BP 136/47
[2017-08-24] MEDS: TraMADol HCL 50 MG TABLET PO PRN ×3 (01:13→22:21)
[2017-08-24 06:12] LABS: GLUCOSE,POINT OF CARE 124 MG/DL (70-110)
[2017-08-24 07:10] VITALS: BP 119/55
[2017-08-24] MEDS: SitaGLIPtin PHOSPHATE 25 MG TABLET PO SCH (07:13)
[2017-08-24] MEDS: PredniSONE 5 MG TABLET PO SCH (07:13)
[2017-08-24] MEDS: FLUTICASONE PROPIONATE 50 MCG/SPRAY 16 GM NASAL SPRAY NASAL SCH (07:13)
[2017-08-24] MEDS: ATORVASTATIN CALCIUM 20 MG TABLET PO SCH (07:13)
[2017-08-24] MEDS: DOCUSATE SODIUM 250 MG CAPSULE PO SCH ×2 (07:13→21:48)
[2017-08-24] MEDS: APIXABAN 2.5 MG TABLET PO SCH ×2 (07:13→21:48)
[2017-08-24] MEDS: VITAMIN B COMP/VIT C/FOLIC ACID CAPSULE PO SCH (07:13)
[2017-08-24] MEDS: EPOETIN ALFA 10,000 UNITS/ML VIAL SQ SCH (07:14)
[2017-08-24] MEDS: FAMOTIDINE 20 MG TABLET PO SCH (07:14)
[2017-08-24] MEDS: GABAPENTIN 300 MG CAPSULE PO SCH (07:14)
[2017-08-24] MEDS: INSULIN ASPART 100 UNITS/ML SQ PRN ×3 (12:23→21:51)
[2017-08-24 16:20] VITALS: BP 139/68
[2017-08-24 17:32] LABS: GLUCOSE,POINT OF CARE 248 MG/DL (70-110)
[2017-08-24] MEDS: SENNA 187 MG TABLET PO SCH (21:48)
[2017-08-24 22:19] VITALS: BP 116/50
[2017-08-24 22:42] LABS: GLUCOSE,POINT OF CARE 163 MG/DL (70-110)
[2017-08-24 23:21] VITALS: BP 105/51
[2017-08-25 01:28] LABS: GLUCOSE COMMENT 1 Received Meds; GLUCOSE,POINT OF CARE 179 MG/DL (70-110)
[2017-08-25] MEDS: TraMADol HCL 50 MG TABLET PO PRN ×3 (05:39→22:21)
[2017-08-25 06:22] LABS: GLUCOSE,POINT OF CARE 119 MG/DL (70-110)
[2017-08-25 07:30] VITALS: BP 130/60
[2017-08-25] MEDS: APIXABAN 2.5 MG TABLET PO SCH ×2 (07:32→20:16)
[2017-08-25] MEDS: PredniSONE 5 MG TABLET PO SCH (07:32)
[2017-08-25] MEDS: DOCUSATE SODIUM 250 MG CAPSULE PO SCH ×2 (07:32→20:16)
[2017-08-25] MEDS: FAMOTIDINE 20 MG TABLET PO SCH (07:32)
[2017-08-25] MEDS: SitaGLIPtin PHOSPHATE 25 MG TABLET PO SCH (07:32)
[2017-08-25] MEDS: GABAPENTIN 300 MG CAPSULE PO SCH (07:33)
[2017-08-25] MEDS: VITAMIN B COMP/VIT C/FOLIC ACID CAPSULE PO SCH (07:33)
[2017-08-25] MEDS: ATORVASTATIN CALCIUM 20 MG TABLET PO SCH (07:33)
[2017-08-25] MEDS: FLUTICASONE PROPIONATE 50 MCG/SPRAY 16 GM NASAL SPRAY NASAL SCH (07:33)
[2017-08-25] MEDS: INSULIN ASPART 100 UNITS/ML SQ PRN ×2 (13:04→18:15)
[2017-08-25 13:13] LABS: GLUCOSE COMMENT 1 Received Meds; GLUCOSE,POINT OF CARE 192 MG/DL (70-110)
[2017-08-25 15:34] VITALS: BP 119/47
[2017-08-25 17:23] LABS: GLUCOSE,POINT OF CARE 209 MG/DL (70-110)
[2017-08-25] MEDS ORDERED: DiphenhydrAMINE HCL 50 MG/ML VIAL IVP PRN (19:45)
[2017-08-25] MEDS ORDERED: MANNITOL 25%-12.5 GM/50 ML VIAL IVP PRN (19:45)
[2017-08-25] MEDS: SENNA 187 MG TABLET PO SCH (20:16)
[2017-08-25 21:55] LABS: GLUCOSE,POINT OF CARE 139 MG/DL (70-110)
[2017-08-26 00:46] VITALS: BP 129/61
[2017-08-26] MEDS: TraMADol HCL 50 MG TABLET PO PRN (04:34)
[2017-08-26 06:08] LABS: GLUCOSE,POINT OF CARE 139 MG/DL (70-110)
[2017-08-26 07:57] VITALS: BP 148/54
[2017-08-26] MEDS: ATORVASTATIN CALCIUM 20 MG TABLET PO SCH (08:13)
[2017-08-26] MEDS: PredniSONE 5 MG TABLET PO SCH (08:13)
[2017-08-26] MEDS: SitaGLIPtin PHOSPHATE 25 MG TABLET PO SCH (08:13)
[2017-08-26] MEDS: VITAMIN B COMP/VIT C/FOLIC ACID CAPSULE PO SCH (08:13)
[2017-08-26] MEDS: GABAPENTIN 300 MG CAPSULE PO SCH (08:13)
[2017-08-26] MEDS: APIXABAN 2.5 MG TABLET PO SCH (08:13)
[2017-08-26] MEDS: DOCUSATE SODIUM 250 MG CAPSULE PO SCH (08:13)
[2017-08-26] MEDS: FAMOTIDINE 20 MG TABLET PO SCH (08:14)
[2017-08-26] MEDS: FLUTICASONE PROPIONATE 50 MCG/SPRAY 16 GM NASAL SPRAY NASAL SCH (08:14)
[2017-08-26] MEDS: EPOETIN ALFA 10,000 UNITS/ML VIAL SQ SCH (08:15)
[2017-08-26] MEDS ORDERED: DOCU250C91 PO (10:21)
[2017-08-26] MEDS ORDERED: SITA25 PO (10:21)
[2017-08-26] MEDS ORDERED: TRAM50TA4 PO (10:21)
[2017-08-26] MEDS ORDERED: APIX2.5T PO (10:21)
[2017-08-26] MEDS ORDERED: GABA-531 PO (10:21)
[2017-08-26] MEDS ORDERED: INSNOV SQ (10:21)
[2017-08-26] MEDS ORDERED: FLUT16H NASAL (10:21)
[2017-08-26] MEDS ORDERED: ATOR20TA86 PO (10:21)
== END 2017-08-26 11:45 | disposition home health service (06) | DRG 70 ==
LOC: 2WR 11:55
PROVIDERS: ADMIT Physical Medicine & Rehabilitation; ATTEND Physical Medicine & Rehabilitation
PROC: 5A1D70Z Performance of Urinary Filtration, Intermittent, Less than 6 Hours Per Day (ICD-10-PCS; principal; 2017-07-30)
PROC: 5A1D70Z Performance of Urinary Filtration, Intermittent, Less than 6 Hours Per Day (ICD-10-PCS; 2017-08-01)
PROC: 5A1D70Z Performance of Urinary Filtration, Intermittent, Less than 6 Hours Per Day (ICD-10-PCS; 2017-08-03)
PROC: 5A1D70Z Performance of Urinary Filtration, Intermittent, Less than 6 Hours Per Day (ICD-10-PCS; 2017-08-06)
PROC: 5A1D70Z Performance of Urinary Filtration, Intermittent, Less than 6 Hours Per Day (ICD-10-PCS; 2017-08-08)
PROC: 5A1D70Z Performance of Urinary Filtration, Intermittent, Less than 6 Hours Per Day (ICD-10-PCS; 2017-08-11)
PROC: 5A1D70Z Performance of Urinary Filtration, Intermittent, Less than 6 Hours Per Day (ICD-10-PCS; 2017-08-13)
PROC: 5A1D70Z Performance of Urinary Filtration, Intermittent, Less than 6 Hours Per Day (ICD-10-PCS; 2017-08-15)
PROC: 5A1D70Z Performance of Urinary Filtration, Intermittent, Less than 6 Hours Per Day (ICD-10-PCS; 2017-08-18)
PROC: 5A1D70Z Performance of Urinary Filtration, Intermittent, Less than 6 Hours Per Day (ICD-10-PCS; 2017-08-20)
PROC: 5A1D70Z Performance of Urinary Filtration, Intermittent, Less than 6 Hours Per Day (ICD-10-PCS; 2017-08-22)
PROC: 5A1D70Z Performance of Urinary Filtration, Intermittent, Less than 6 Hours Per Day (ICD-10-PCS; 2017-08-25)
DX: G93.41 Metabolic encephalopathy (principal); N18.6 End stage renal disease; T86.12 Kidney transplant failure; E11.22 Type 2 diabetes mellitus with diabetic chronic kidney disease; E11.40 Type 2 diabetes mellitus with diabetic neuropathy, unspecified; E83.39 Other disorders of phosphorus metabolism; I31.3 Pericardial effusion (noninflammatory); E11.52 Type 2 diabetes mellitus with diabetic peripheral angiopathy with gangrene; I12.0 Hypertensive chronic kidney disease with stage 5 chronic kidney disease or end stage renal disease; L97.929 Non-pressure chronic ulcer of unspecified part of left lower leg with unspecified severity; N39.0 Urinary tract infection, site not specified; S82.892A Other fracture of left lower leg, initial encounter for closed fracture; B96.20 Unspecified Escherichia coli [E. coli] as the cause of diseases classified elsewhere; D63.1 Anemia in chronic kidney disease; E11.622 Type 2 diabetes mellitus with other skin ulcer; E78.00 Pure hypercholesterolemia, unspecified; G89.29 Other chronic pain; I48.0 Paroxysmal atrial fibrillation; I48.2 Chronic atrial fibrillation; I51.7 Cardiomegaly; I70.202 Unspecified atherosclerosis of native arteries of extremities, left leg; M06.9 Rheumatoid arthritis, unspecified; Y83.0 Surgical operation with transplant of whole organ as the cause of abnormal reaction of the patient, or of later complication, without mention of misadventure at the time of the procedure; Z82.49 Family history of ischemic heart disease and other diseases of the circulatory system; Z83.3 Family history of diabetes mellitus; Z86.718 Personal history of other venous thrombosis and embolism; Z86.73 Personal history of transient ischemic attack (TIA), and cerebral infarction without residual deficits; Z87.440 Personal history of urinary (tract) infections; Z99.2 Dependence on renal dialysis
CPT/HCPCS: 76881; 82962; 83036; 83735; 83970; 84100; 87040; 87081; 87086; 87340; 90935; 92507; 92523; 97110; 97112; 97150; 97163; 97167; 97530; 97535; 99366; J0885; J3370; J3490; J7030; J7040; J7050; J7060; Q0162